=== PATIENT | male | born 1955 | race Caucasian/White ===

== ENCOUNTER 2024-09-30 21:42 | Emergency (ER) | payer MEDICARE, OTHER, SELFPAY ==
[2024-09-30 21:46] VITALS: BP 180/94
[2024-09-30 21:49] VITALS: BP 180/94
[2024-09-30 21:56] LABS: % Basophils 0.6 % (0-2); % Eosinophils 1.6 % (0-6); % Immature Granulocytes 0.6 % (0-0.5); % Monocytes 12.1 % (1.7-9.3); % Neutrophils 65.1 % (42.2-75.2); Absolute Eosinophils 0.1 10^3/uL (0-0.7); Absolute Lymphocytes 1.3 10^3/uL (1.2-3.4); Absolute Monocytes 0.8 10^3/uL (0.1-0.6); Absolute Neutrophils 4.2 10^3/uL (1.4-6.5); Mean Corp Hgb Conc. 29.4 g/dL (33.0-37.0); Mean Corpuscular Hgb 28.8 pg (27.0-31.0); Mean Platelet Volume 8.8 fL (7.4-10.4); Nucleated Red Blood Cells % 0 % (-); Platelet Count 272 10^3/uL (130-400); Red Blood Cell Count 3.47 10^6/uL (4.70-6.10); Red Cell Dist. Width 14.4 % (11.5-14.5); White Blood Cell Count 6.5 10^3/uL (4.8-10.8)
[2024-09-30 21:57] VITALS: BMI 25.2
[2024-09-30 22:00] VITALS: BP 170/83
[2024-09-30 22:19] LABS: Troponin I 0.017 ng/ml
[2024-09-30 22:23] LABS: ALT (SGPT) 16 U/L (0-50); AST (SGOT) 27 U/L (17-59); Albumin 3.9 g/dl (3.5-5.0); Alkaline Phosphatase 75 U/L (38-126); Blood Urea Nitrogen 29 mg/dl (9-20); Calcium 8.8 mg/dl (8.4-10.2); Chloride 91 mmol/L (98-107); Estimated Creatinine Clearance 45 ml/min; Glucose 140 mg/dl (70-99); Potassium 3.9 mmol/L (3.5-5.1); Sodium 139 mmol/L (135-145); Total Bilirubin 0.2 mg/dl (0.2-1.3); Total Protein 6.9 g/dl (6.3-8.2); eGFR 54.41
[2024-09-30 22:34] LABS: Carbon Dioxide 38 mmol/L (22-30)
--- NOTE | 2024-09-30 22:46 | ED.GENMED ---
History of Present Illness
General
Chief Complaint: Chest Pain
Source: patient and family
Exam Limitations: none
Time Seen by Provider: 09/30/24 22:17
Nursing documentation reviewed up to this point in time: agreed with
History of Present Illness
History of Present Illness:
69-year-old male with a past medical history of [place] on CPAP, hypertension, GERD/PUD, ankylosing spondylitis, chronic respiratory failure on 3 L of oxygen who presents to the emergency room with his family for evaluation of chest/abdominal pain.
Patient reports onset of symptoms after dinner around 8:30 PM and it lasted for a little over an hour and since have completely resolved. He describes a pressure sensation in the left upper abdomen/lower chest. He says that symptoms were quite
intense and he became very anxious about them. He says he was hyperventilating but not necessarily short of breath�he attributes hyperventilating to anxiety. He says he had some mild lightheadedness. He did not have any nausea or vomiting. He
did not have any palpitations. He says he was in his normal state of health prior to onset and has not had any coughing, fevers, chills, nausea or diarrhea. He says that he had kidney stones a long time ago but symptoms today feel different; he
cannot recall prior instance of similar symptoms as tonight.
Past History
Past History
ED Past Medical History: Other (Peptic ulcer disease) and Other (ankylosing spondylitis/gallstones)
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
Patient has exhibited threatening behavior?: No
PSI?: No
Social History
Tobacco: Non-smoker
Alcohol: None
Drug: None
Personal:
Living: alone
Review of Systems
Review of Systems
All Other Systems: ROS reviewed and negative except as documented in HPI and ROS
Constitutional: Denies fever or chills
Respiratory: Denies cough or trouble breathing
Cardiac: Reports chest pain (Lower chest/upper abdominal pain); Denies palpitations
ABD/GI: Reports abdominal pain (Upper abdominal/lower chest pain); Denies nausea, vomiting or diarrhea
: Denies dysuria, flank pain or bleeding
Musculoskeletal: Denies neck pain or back pain
Neurological: Reports dizzy; Denies headache
Phy Exam
Physical Exam
Physical Exam:
General: Awake, alert, oriented x3; no acute distress
Head: Normocephalic, atraumatic
Eyes: Conjunctiva normal, EOMI
Throat: Airway intact, handling secretions
Neck: Trachea midline, supple without meningismus
Lungs: Clear to auscultation bilaterally, no wheezing, rales, rhonchi
Heart: Regular rate and rhythm, no murmurs, gallops, or rubs
Abd: Soft, non distended, nontender with no palpable masses
Neuro: No gross deficits
Skin: no rash in area of concern
Extremities: Warm and well-perfused
Scores
Heart Failure Risk
Heart Failure Risk Score: Not Applicable
Heart Score for Chest Pain Patients
STEMI patient?: Not applicable
Withdrawal Assessment of Alcohol
Withdrawal Assessment Completed?: Not applicable
Course
Orders/Labs/Results
Orders:
Orders
09/30/24 21:45
Electrocardiogram (*1) Urgent
Reason for Study: Chest Pain
Cardiac Monitoring- Treatment ONCE
EKG- Treatment ONCE
IV Insert/Care/Rem.- Treatment PRN
O2 Therapy [RESP] Urgent
Titrate/Wean O2 to maintain O2 sat greater than (%): 90
Special Instructions: Maintain sats >/=90%
Pulse Ox/spot Check [RESP] Urgent
Quantity: 1
Special Instructions: ON ROOM AIR
09/30/24 21:49
Complete Blood Count/With Diff Urgent
Comprehensive Metabolic Panel Urgent
Lipase Urgent
Comment: ADD ON
Troponin I Urgent
09/30/24 22:27
US Abdomen Complete/Upper Urgent
Reason For Exam: left upper abd pain/flank pain
09/30/24 22:49
Add On- LAB Urgent
Tests Added?: lipase
CR Chest - 2 Views Urgent
Comment:
Reason For Exam: left lower chest/upper abd pain
09/30/24 22:51
Urinalysis Reflex To Culture Urgent
Date Specimen was Collected: 09/30/24
Time Specimen was Collected: 22:39
Urine Microscopic Reflex Cult Urgent
09/30/24 22:59
D-Dimer Urgent
09/30/24 23:07
0.9% Sodium Chloride 1000 ml [Nss] 1,000 ml IV BOLUS
10/01/24
US Urinary Bladder Only Urgent
10/01/24 00:50
Troponin I Urgent
Abnormal Lab Results
09/30/24 09/30/24 09/30/24
21:49 22:51 22:59
RBC 3.47 L 10^6/uL
(4.70-6.10)
Hgb 10.0 L g/dL
(13.0-18.0)
Hct 34.0 L %
(39.0-52.0)
MCV 98.0 H fL
(80.0-94.0)
MCHC 29.4 L g/dL
(33.0-37.0)
Absolute Monos (auto) 0.8 H 10^3/uL
(0.1-0.6)
Immature Gran % 0.6 H %
(0-0.5)
Lymphocytes % 20.0 L %
(20.5-51.1)
Monocytes % 12.1 H %
(1.7-9.3)
D-Dimer 0.56 H ug/mlFEU
(0.00-0.50)
Chloride 91 L mmol/L
(98-107)
Carbon Dioxide 38 H mmol/L
(22-30)
BUN 29 H mg/dl
(9-20)
Creatinine 1.4 H mg/dL
(0.7-1.3)
Glucose 140 H mg/dl
(70-99)
Urine Bacteria (Reflex) Few A
(Negative)
Urine Albumin (Reflex) 2+ A
(Neg - Trace)
09/30/24 21:49
09/30/24 21:49
Vital Signs
Initial and Last Documented VS:
Initial Vital Signs
Temp Pulse Resp BP Pulse Ox
36.6 C 90 21 180/94 99
09/30/24 21:46 09/30/24 21:46 09/30/24 21:46 09/30/24 21:46 09/30/24 21:46
Last Documented Vital Signs
Temp Pulse Resp BP Pulse Ox
36.6 C 86 15 162/82 98
09/30/24 21:46 09/30/24 23:16 09/30/24 23:16 09/30/24 23:16 09/30/24 23:16
MDM/Problems Addressed
Differential Diagnosis Includes:
GERD/PUD, pancreatitis, nephrolithiasis, angina/ACS, pneumothorax, pneumonia, PE less likely
MDM/Problems Addressed:
69-year-old male with history as documented presents to the emergency room for evaluation after an episode of left lower chest/upper abdominal pain that lasted for about an hour. He is now asymptomatic. Mild associated dizziness and anxiety.
Hypertensive but otherwise normal vitals here�saturation of 100% on his normal home oxygen. Physical exam as above. He had labs sent in triage including a CBC which shows stable anemia, CMP shows mild DENNIS with a creatinine of 1.4 from baseline of
1.1. He has a chronic metabolic alkalosis. He had a troponin sent off which was negative�will trend to rule out ACS. Send a D-dimer. Check urinalysis. Considered CT of the abdomen pelvis but patient says that he struggles to lay flat for CT and
he is currently asymptomatic with a benign abdomen; nephrolithiasis is a consideration, reasonable to start with bladder and renal ultrasound as well as a chest x-ray. Monitor clinically reassess after the above.
D-dimer age-adjusted negative. Urinalysis negative for infection no blood. Chest x-ray no acute disease. Ultrasound of the abdomen shows normal liver, bilateral renal cysts but otherwise normal kidneys with no hydronephrosis masses or echogenic
shadowing. Normal spleen. No free fluid. We are awaiting his repeat troponin. Blood pressure improved but vital signs otherwise stable.
Repeat troponin negative. Patient remains well-appearing has not had recurrence of symptoms. Low suspicion for emergent pathology at this point I suspect this could be GERD or possibly gastric ulcer; he is already on a PPI. Patient feels
comfortable discharge home, follow-up with PCP. I think is a reasonable plan. Spoke about return precautions all questions answered.
Acute Exacerbation and/or Progression of Chronic Illness:
Acutely hypertensive
Acute Exacerbation and/or Progression of Chronic Illness: HTN
*Radiology
Radiology exam reviewed: radiology read reviewed
*Pulse Oximetry
Patient hypoxic: no
*EKG
Interpreted by ED Provider?: Yes
Heart Rate: 85
Rate: normal
Rhythm: sinus
[place]: left axis deviation
Interval: normal interval
QRS Pattern: right bundle branch block (Incomplete)
Ischemia: non-specific ST changes
*Critical Care Note
Total Time (30-74mins, 75-104mins- exclusive of procedures): Not Applicable
Data Reviewed
Review of Other/Old Records Reveals: Labs and Records
Source: patient, records and family
Patient Management
Escalation/DeEscalation of care consider admission/obs:
Considered admission for observation but patient feels comfortable with discharge and PCP follow-up
ED Attending Note
-
Portions of this chart may have been created with voice recognition software.� Occasional wrong word or��sound alike� substitutions may have occurred due to the inherent limitations of voice recognition software.
Discharge Plan
Departure
Patient Disposition: Home (Routine Discharge)
Date of Disposition: 10/01/24
Time of Disposition: 01:30
Patient with high blood pressure during this ER visit?: Yes
Discharge Problem:
Left upper quadrant abdominal pain, DENNIS (acute kidney injury), Hypertension
Instructions: Abdominal pain in adults - Discharge instructions, BLOOD PRESSURE
Prescriptions:
No Action
prednisone 5 MG tablet
5 mg PO DAILY
allopurinol 100 MG tablet
100 mg PO BID
infliximab [Remicade] 100 MG/10 ML recon soln
100 mg IV QMONTH
Besivance 0.6 % Drops,Suspension
1 drp RIGHT EYE HS
omeprazole 40 mg capsule,delayed release(DR/EC)
40 mg PO DAILY
atropine 1 % drops
1 drp RIGHT EYE DAILYPRN PRN (Reason: computer use)
polyethylene glycol 3350 [Miralax] 17 gram Powder In Packet
17 g PO DAILY
metolazone 5 mg Tablet
5 mg PO BID
leflunomide 20 mg Tablet
20 mg PO DAILY
acetaminophen [Tylenol Extra Strength] 500 mg Tablet
1,000 mg PO BID
prednisolone acetate 1 % Drops,Suspension
1 drp RIGHT EYE BID
metoprolol succinate 25 mg Tablet Extended Release 24 Hr
25 mg PO DAILY
albuterol sulfate 90 mcg/actuation Hfa Aerosol Inhaler
2 puff INHALATION R Q6HPRN PRN (Reason: sob)
Referrals:
UNKNOWN - PT DOES,NOT KNOW [Family Provider] -
Activity Restrictions/Additional Instructions:
Thank you for visiting the Emergency Department at [facility].
1. Please schedule a follow up appointment as directed. Call first thing tomorrow morning to make an appointment.
2. If indicated, please take your medications as instructed and indicated on discharge paperwork.
3. If any of your symptoms do not improve, or persist, or become more severe within 6-12 hours, please return to the emergency department for further care.
4. Please return to the emergency department if you develop a headache, neck pain/stiffness, fever greater than 100.4F, chest pain, shortness of breath, persistent nausea, vomiting, slurred speech, difficulty walking, numbness/tingling, weakness,
signs of infection or any other symptoms that are worrisome to you.
Please call [phone] if you have any questions.
Interventions
Interventions:
*Risk Screen - Suicide Last Done: 09/30/24 21:46
*General Assessment Last Done: 09/30/24 21:46
*Neglect/Abuse Screening Last Done: 09/30/24 21:46
ED- Fall Risk Assessment Last Done: 09/30/24 21:58
ED- Cardiac Assessment Last Done: 09/30/24 23:21
Discharge Date and Time
Print Language: THAI
[2024-09-30 23:08] LABS: Urine Albumin 2+ (Neg - Trace); Urine Bilirubin Negative (Negative); Urine Character Clear (Clear); Urine Color Yellow; Urine Glucose Negative (Negative); Urine Ketone Negative (Negative); Urine Leukocyte Negative (Negative); Urine Nitrite Negative (Negative); Urine Occult Blood Negative (Negative); Urine Urobilinogen Negative (Neg - 1+)
[2024-09-30] MEDS: NSS 1000 IV (23:09)
[2024-09-30 23:13] LABS: Urine Mucus Few; Urine Squamous Cell 0-2 /LPF (Few)
--- NOTE | 2024-09-30 23:13 | EDRN ---
Pt says he had pain and was concerned there was something going on with his heart. Pt says he got tunnel vision and got scared which prompted ED visit. Pain was L side chest described as 'pretty hard' that started around [id number] while he was
watching TV. Pt adds he had a little discomfort in the afternoon and he thought it was indigestion and it went away quickly. No medications taken for pain. No sob, n/v/d/c, abd pain, urinary symptoms. Pt is pain free at this time.
[2024-09-30 23:14] LABS: Urine Bacteria Few (Negative); Urine Red Blood Cell 0-2 /HPF (0-2); Urine White Cell 0-2 /HPF (0-5)
[2024-09-30 23:16] VITALS: BP 162/82
[2024-09-30 23:20] LABS: D-Dimer 0.56 ug/mlFEU (0.00-0.50)
[2024-09-30 23:52] LABS: Lipase 119 U/L (23-300)
[2024-10-01 01:00] VITALS: BP 167/91
[2024-10-01 01:24] LABS: Troponin I 0.018 ng/ml
== END 2024-10-01 01:54 | disposition home or self-care (01) ==
LOC: EMR 21:42
PROVIDERS: Emergency Medicine; EMERGENCY PHYSICIAN Emergency Medicine
DX: R10.12 Left upper quadrant pain (principal); N17.9 Acute kidney failure, unspecified; I10 Essential (primary) hypertension; K21.9 Gastro-esophageal reflux disease without esophagitis
CPT/HCPCS: 99285; 96360; 71046; 76700; 76857; 80053; 81003; 81015; 83690; 84484; 85025; 85379; 93005

== ENCOUNTER → 2025-06-01 13:48 | Outpatient (REF) | payer MEDICARE, OTHER, SELFPAY | LOC: HWRAD 13:48 | PROVIDERS: ATTENDING PHYSICIAN Internal Medicine Rheumatology; FAMILY PHYSICIAN Family Medicine | DX: M17.11 Unilateral primary osteoarthritis, right knee (principal) | CPT/HCPCS: 73560; 73565 ==